=== PATIENT | male | born 1985 | race African-American/Black ===

== ENCOUNTER 2018-07-29 16:30 | Emergency (ER) | payer OTHER, MEDICAID, SELFPAY ==
[2018-07-29] VITALS (7 sets, daily range): BP systolic 127–147; BP diastolic 69–92; PULSE 69–105; RESP 16–27; TEMP 36.7; O2SAT 98–100; BMI 49.8
--- NOTE | 2018-07-29 18:09 | ED.ARRPALP ---
HPI - Arrhythmia/Palpitations General Chief Complaint: Arrhythmia/Palpitations Stated Complaint: feeling like passing out,states heart palpitaitons Time Seen by Provider: 07/29/18 18:08 Source: patient Mode of arrival: ambulatory Limitations: no limitations History of Present Illness HPI narrative: Patient states he has a history of palpitations for the last couple of years; however, he states that for the past week and half, he has also noticed that he has felt dizzy when he stands up or sits. Patient states he keeps getting head rushes. Patient denies fevers, chills, vomiting, diarrhea, dysuria, shortness of breath, chest pain, or lower extremity edema. He states he is otherwise healthy. He has been sleeping about as much as he usually does, and drinks about 64 oz combined of water and Gatorade. He states he does not drink caffeine or alcohol. Patient is not on any medications and has not been on any new as needed or [id number] medications lately. Patient states his stress level is about the same as usual. He does state his palpitations got worse after he started working out and quit using caffeine. Patient has previously been worked up with Cardiology For his palpitations, including echocardiogram and Holter monitoring, both of which were unremarkable. Patient states he does not have a primary care physician. MD complaint: palpitations ( dizziness) Onset (ago): week(s) ( 1 and half weeks) Duration: intermittent Severity: moderate Context: occurred during rest Arrhythmia history: other ( patient has been diagnosed with PVCs previously.) Associated symptoms: near-syncope ( Patient states he has not felt as though he would lose consciousness, but just feels Somewhat lightheaded. ) Treatments prior to arrival: other ( none) Related Data Previous Rx's Medication Instructions Recorded albuterol sulfate [Ventolin HFA] 0 INH Q4H #8 gm 10/31/16 Allergies Allergy/AdvReac Type Severity Reaction Status Date / Time No Known Drug Allergies Allergy Verified 07/29/18 16:38 Review of Systems Review of Systems All systems reviewed & are unremarkable except as noted in HPI and below Constitutional Denies chills, Denies difficulty sleeping, Denies fever(s), Denies lethargy, Denies night sweats and Denies weakness Eyes Denies change in vision, Denies eye discharge, Denies irritation and Denies loss of vision ENT Ears, Nose, Mouth, and Throat: Denies change in voice, Denies neck pain and Denies sore throat Cardiovascular Denies chest pain, Denies irregular heart rhythm, Reports lightheadedness, Reports palpitations ( chronic), Denies dyspnea, Denies dyspnea on exertion and Denies orthopnea Respiratory Denies cough, Denies dyspnea, Denies dyspnea on exertion and Denies wheezing Gastrointestinal Gastrointestinal: Denies abdominal pain, Denies change in bowel habits, Denies diarrhea, Denies nausea and Denies vomiting Genitourinary Denies hematuria, Denies flank pain, Denies urinary incontinence and Denies urinary urgency Musculoskeletal Denies neck pain Integumentary/Breasts Denies pruritus, Denies erythema, Denies rash and Denies wounds Neurologic Denies confusion, Denies loss of vision and Denies weakness Psychiatric Denies anxiety, Denies confusion, Denies depression, Denies homicidal ideation and Denies suicidal ideation Endocrine Reports palpitations ( chronic) Hematologic/Lymphatic Denies easy bruising Allergic/Immunologic Denies wheezing PFSH Medical History PVC (premature ventricular contraction) (Acute) Palpitations (Acute) Thoracic back pain (Acute) Surgical History No pertinent past surgical history (Acute) Family History Brother Hypertension Diabetes mellitus, type II Father Age: 68 [place] (myocardial infarction), Onset Age: 40 Diabetes mellitus Hypertension Grandmother Emphysema Mother Obesity Anxiety and depression Social History Smoking Status: Current every day smoker Exam Initial Vital Signs Initial Vital Signs: Vital Signs Temperature 98.0 F 07/29/18 16:38 Pulse Rate 76 07/29/18 16:38 Respiratory Rate 18 07/29/18 16:38 Blood Pressure 147/92 H 07/29/18 16:38 Pulse Oximetry 100 07/29/18 16:38 Const General: cooperative and well developed Nutritional Appearance: obese ( moderate) Orientation: alert, awake, oriented x3 and not confused [facility] Head: normocephalic and atraumatic Ears: external ears normal Nose: external nose normal and No nasal discharge Mouth: oral mucosae normal and moist mucous membranes Eyes General: appearance normal, both eyes and all related structures Eyelids: eyelids normal Conjunctivae: conjunctivae normal Sclera: sclerae normal Pupils: PERRL EOM: EOM intact bilaterally Neck Neck: normal visual inspection, trachea midline, No lymphadenopathy, No midline deformity and No JVD Lymphatic: No lymphedema Chest Chest: normal inspection of the chest Resp Effort & Inspection: normal respiratory effort, able to speak in complete sentences, no respiratory distress and no use of accessory muscles Auscultation: clear to auscultation bilaterally, no rales, no rhonchi and no wheezes Cardio Rate: regular rate Rhythm: regular rhythm Heart Sounds: no click, no gallops, no murmurs and no rubs Pulses: normal peripheral pulses GI Inspection: non-distended Palpation: soft, no hepatosplenomegaly, No guarding, No pulsatile mass and No tender Auscultation: normal bowel sounds Back/Spine/Pelvis Back: No CVA tenderness Cervical Spine: cervical ROM normal and No pain with cervical ROM Thoracic/Lumbar Spine: thoracic and lumbar spine normal to inspection Skin General: no rashes or lesions noted, No jaundice and No petechiae Neuro General: alert, oriented x3, gait normal and no focal motor deficits Speech: speech normal Extrem General: full ROM, no clubbing, cyanosis or edema, no pedal edema and no calf tenderness Psych Appearance: well kempt Mental Status: mental status grossly normal Attitude: cooperative Thought Content: normal and suicidality Judgment: judgment good Course Hospital Course: Patient was given 1 L bolus 0.9 normal saline and was worked up with laboratory studies. We did discuss potential causes of the patient's symptoms, though I did emphasize to the patient that he is relatively low risk, given his age and lack of comorbidities. Orders Ordered: Discontinued Medications Sodium Chloride (Normal Saline 0.9%) 1,000 mls @ 1,000 mls/hr IV BOLUS ONE Stop: 07/29/18 19:29 Last Admin: 07/29/18 19:09 Dose: 1,000 mls/hr Vital Signs - 8 hr 07/29/18 16:38 Temperature 98.0 F Pulse Rate 76 Respiratory Rate 18 Blood Pressure 147/92 H Pulse Oximetry 100 MDM - Arrhythmia/Palpitations Medical Records Attestation: I reviewed the patient's medical records. Lab Data Result diagrams: 07/29/18 18:50 07/29/18 20:25 Lab Results 07/29/18 07/29/18 07/29/18 Range/Units 18:50 18:50 18:50 WBC 12.5 H (4.5-11.0) X10^3/uL RBC 5.30 (4.5-5.9) X10^6/uL Hgb 16.3 (13.5-17.5) g/dL Hct 48.4 (41-53) % MCV 91.4 (80-100) fL MCH 30.7 (26-34) PG MCHC 33.6 (30-36) % RDW 13.8 (11.6-14.8) % Plt Count 314 (150-400) X10^3/uL Neut % (Auto) 72.2 (50-75) % Lymph % (Auto) 23.1 L (25-40) % [place] % (Auto) 3.9 (3-14) % Eos % (Auto) 0.5 L (2-4) % Baso % (Auto) 0.3 (0-2) % Neut # (Auto) 9000 H (6253-1664) /uL Sodium 140 (137-145) mmol/L Potassium TNP Chloride 106 (98-107) mmol/L Carbon Dioxide 26 (22-32) mmol/L BUN 11 (9-20) mg/dL Creatinine 0.70 (0.66-1.25) mg/dL Estimated GFR > 60.0 (>60) mL/min BUN/Creatinine Ratio 15.7 (6-22) Glucose 85 (70-100) mg/dL Calcium 9.3 (8.4-10.2) mg/dL Total Bilirubin 1.2 (0.2-1.3) mg/dL AST 39 (17-59) IU/L ALT 22 (21-72) IU/L Alkaline Phosphatase 54 (38-126) U/L Total Protein 8.4 H (6.3-8.2) g/dL Albumin 4.6 (3.5-5.0) g/dL Globulin 3.8 (1.7-4.1) g/dL Albumin/Globulin Ratio 1.2 (1.0-2.8) TSH 0.91 (0.47-4.68) uIU/mL Free T4 1.21 (0.78-2.19) ng/dL 07/29/18 Range/Units 20:25 WBC (4.5-11.0) X10^3/uL RBC (4.5-5.9) X10^6/uL Hgb (13.5-17.5) g/dL Hct (41-53) % MCV (80-100) fL MCH (26-34) PG MCHC (30-36) % RDW (11.6-14.8) % Plt Count (150-400) X10^3/uL Neut % (Auto) (50-75) % Lymph % (Auto) (25-40) % [place] % (Auto) (3-14) % Eos % (Auto) (2-4) % Baso % (Auto) (0-2) % Neut # (Auto) (1042-9815) /uL Sodium (137-145) mmol/L Potassium 4.4 Chloride (98-107) mmol/L Carbon Dioxide (22-32) mmol/L BUN (9-20) mg/dL Creatinine (0.66-1.25) mg/dL Estimated GFR (>60) mL/min BUN/Creatinine Ratio (6-22) Glucose (70-100) mg/dL Calcium (8.4-10.2) mg/dL Total Bilirubin (0.2-1.3) mg/dL AST (17-59) IU/L ALT (21-72) IU/L Alkaline Phosphatase (38-126) U/L Total Protein (6.3-8.2) g/dL Albumin (3.5-5.0) g/dL Globulin (1.7-4.1) g/dL Albumin/Globulin Ratio (1.0-2.8) TSH (0.47-4.68) uIU/mL Free T4 (0.78-2.19) ng/dL ECG Data Attestation: I personally reviewed and interpreted this ECG as follows: (See below) Interpretation: Twelve lead EKG performed on July 29, 2018 at 4:39 p.m.. Regular ventricular rhythm with a rate of 76 beats per minute [place] interval 183 milliseconds QRS duration 85 millisecond QTC interval 391 milliseconds Normal axis Interpretation: Normal sinus rhythm; normal EKG Interpretation by ED MD MDM Narrative Medical decision making narrative: This patient was low risk for cardiac etiology of his symptoms. Additionally, his workup was negative. I did feel he was stable for discharge home. We have discussed home management of his symptoms, as well as the usual indications for return. Discharge Plan Departure Patient Disposition: Home Clinical Impression: Lightheadedness Discharge Date/Time: 07/29/18 21:44 Interventions: ED Discharge Assessment Last Done: 07/29/18 21:44 Instructions: DI for Dizziness-Nonvertigo Activity Restrictions/Additional Instructions: Your labs look good. If you continue to have these episodes, the best plan is to follow up with your primary care physician for further evaluation. Prescriptions: No Action albuterol sulfate [Ventolin HFA] 90 MCG/PUFF HFA aerosol inhaler INH Q4H Qty: 8 RF: 0 Referrals: Madison Baxter ARNP [Primary Care Provider] - ( Please call 1st thing tomorrow morning to schedule a follow-up visit for next week.)
[2018-07-29] MEDS: SODIUM CHLORIDE 0.9% 1,000 ML 1000 ML IV (19:09)
[2018-07-29 19:14] LABS: Add Manual Diff / Slide Review NO; Basophils Percent Auto 0.3 % (0-2); Eosinophils Percent Auto 0.5 % (2-4); Hematocrit 48.4 % (41-53); Hemoglobin 16.3 g/dL (13.5-17.5); Lymphocytes Percent Auto 23.1 % (25-40); Mean Corpuscular HGB Conc 33.6 % (30-36); Mean Corpuscular Hemoglobin 30.7 PG (26-34); Mean Corpuscular Volume 91.4 fL (80-100); Monocytes Percent Auto 3.9 % (3-14); Neutrophils Absolute Auto 9000 /uL (3000-5900); Neutrophils Percent Auto 72.2 % (50-75); Platelet Count 314 X10^3/uL (150-400); Red Cell Distribution Width 13.8 % (11.6-14.8); White Blood Cell Count 12.5 X10^3/uL (4.5-11.0)
[2018-07-29 19:40] LABS: Alanine Aminotransferase 22 IU/L (21-72); Albumin 4.6 g/dL (3.5-5.0); Albumin Globulin Ratio 1.2 (1.0-2.8); Alkaline Phosphatase 54 U/L (38-126); Aspartate Aminotransferase 39 IU/L (17-59); BUN Creatinine Ratio 15.7 (6-22); Bilirubin Total 1.2 mg/dL (0.2-1.3); Blood Urea Nitrogen 11 mg/dL (9-20); Calcium 9.3 mg/dL (8.4-10.2); Carbon Dioxide 26 mmol/L (22-32); Chloride 106 mmol/L (98-107); Estimated Glomerular Filt Rate > 60.0 mL/min (>60); Globulin 3.8 g/dL (1.7-4.1); Glucose 85 mg/dL (70-100); Sodium 140 mmol/L (137-145)
[2018-07-29 19:42] LABS: HEMOLYSIS 217 (0-50); Total Protein 8.4 g/dL (6.3-8.2)
[2018-07-29 19:50] LABS: Free T4, Direct Thyroxine 1.21 ng/dL (0.78-2.19)
[2018-07-29 20:04] LABS: Thyroid Stimulating Hormone 0.91 uIU/mL (0.47-4.68)
[2018-07-29 20:39] LABS: HEMOLYSIS < 15 (0-50); Potassium 4.4 mmol/L (3.4-5.1)
== END 2018-07-29 21:44 | disposition home or self-care (01) ==
PROVIDERS: Emergency Provider Emergency Medicine; Family Provider Nurse Practitioner; PCP Nurse Practitioner
DX: R42 Dizziness and giddiness (principal)
CPT/HCPCS: 36415; 36591; 80053; 84132; 84439; 84443; 85025; 93005; 93010; 96360; 99283; 99284

== ENCOUNTER 2019-11-16 22:58 | Emergency (ER) | payer OTHER, MEDICAID, SELFPAY ==
[2019-11-16 23:05] VITALS: BP 139/79; PULSE 102; RESP 14; TEMP 36.8; O2SAT 99; BMI 47.9
--- NOTE | 2019-11-16 23:09 | DI.RAD.S_ITS ---
PROCEDURE: XR CHEST 1V INDICATIONS: chest pain TECHNIQUE: One view of the chest was acquired. COMPARISON: [facility], CR, XR CHEST 1VW, 02/04/2017, 23:04. [facility], CR, XR CHEST 1VW (PORTABLE), 05/22/2017, 16:49. [facility], CR, CHEST 2 VIEW, 11/18/2016, 20:06. FINDINGS: Surgical changes and devices: None. Lungs and pleura: Lungs are clear. No pleural effusions or pneumothorax. Mediastinum: Mediastinal contours appear normal. Heart size is normal. Bones and chest wall: No suspicious bony lesions. Overlying soft tissues appear unremarkable. IMPRESSION: No acute cardiopulmonary disease. Dictated by: Saundra Mendoza M.D. on 11/17/2019 at 9:22 Approved by: Saundra Mendoza M.D. on 11/17/2019 at 9:22
[2019-11-16 23:19] LABS: Add Manual Diff / Slide Review NO; Basophils Absolute Auto 100 /uL (0-100); Basophils Percent Auto 0.4 % (0-2); Eosinophils Absolute Auto 200 /uL (0-450); Eosinophils Percent Auto 1.2 % (2-4); Hematocrit 47.6 % (41-53); Hemoglobin 16.3 g/dL (13.5-17.5); Lymphocytes Absolute Auto 7300 /uL (1100-4500); Lymphocytes Percent Auto 50.2 % (25-40); Mean Corpuscular HGB Conc 34.3 % (30-36); Mean Corpuscular Volume 90.4 fL (80-100); Monocytes Absolute Auto 1100 /uL (0-900); Monocytes Percent Auto 7.6 % (3-14); Neutrophils Absolute Auto 5900 /uL (1500-7000); Neutrophils Percent Auto 40.6 % (50-75); Platelet Count 324 X10^3/uL (150-400); Prothrombin Time 11.6 SECONDS (10.1-12.7); Red Blood Cell Count 5.27 X10^6/uL (4.5-5.9); Red Cell Distribution Width 13.4 % (11.6-14.8); White Blood Cell Count 14.6 X10^3/uL (4.5-11.0)
[2019-11-16 23:22] LABS: PTT Partial Thromboplastin Tim 32 SECONDS (26.4-36.2)
[2019-11-16 23:24] LABS: Alanine Aminotransferase 39 IU/L (<50); Albumin 4.6 g/dL (3.5-5.0); Albumin Globulin Ratio 1.4 (1.0-2.8); Alkaline Phosphatase 74 U/L (38-126); Aspartate Aminotransferase 31 IU/L (17-59); Bilirubin Total 0.4 mg/dL (0.2-1.3); Blood Urea Nitrogen 16 mg/dL (9-20); Calcium 9.4 mg/dL (8.4-10.2); Carbon Dioxide 25 mmol/L (22-32); Chloride 105 mmol/L (98-107); Creatine Kinase 133 U/L (55-170); Estimated Glomerular Filt Rate > 60.0 mL/min (>60); Globulin 3.4 g/dL (1.7-4.1); Glucose 90 mg/dL (70-100); HEMOLYSIS 39 (0-50); Lipase 74 U/L (23-300); Potassium 3.8 mmol/L (3.4-5.1); Sodium 139 mmol/L (137-145)
--- NOTE | 2019-11-16 23:26 | ED_ITS ---
HPI - Arrhythmia/Palpitations General Chief Complaint: Arrhythmia/Palpitations Stated Complaint: PALPITATIONS Time Seen by Provider: 11/16/19 23:04 Source: family Mode of arrival: Ambulatory Limitations: no limitations History of Present Illness HPI narrative: Patient is a 33-year-old male here for evaluation of pal pitations. He states that throughout today he is noticed that his heart is beating irregularly. He states that it feels like a very hard beat. Does not feel like his heart is beating fast. No chest pain or shortness of breath or lightheadedness associated with. He has had these in the past however they have never been this consistent. He is fairly anxious about the symptoms. Has not tried anything for symptoms prior to arrival Related Data Previous Rx's Medication Instructions Recorded albuterol sulfate [Ventolin HFA] 0 INH Q4H #8 gm 10/31/16 Allergies Allergy/AdvReac Type Severity Reaction Status Date / Time No Known Drug Allergies Allergy Verified 07/29/18 16:38 Review of Systems Constitutional Constitutional: Denies fever(s) and Denies headache(s) ENT Ears, Nose, Mouth, and Throat: Denies headache(s) Cardiovascular Cardiovascular: Denies chest pain, Denies syncope, Denies rapid heart rate, Reports palpitations and Denies dyspnea Respiratory Respiratory: Denies cough and Denies dyspnea Gastrointestinal Gastrointestinal: Denies abdominal pain Musculoskeletal Musculoskeletal: Denies myalgias and Denies arthralgias Integumentary/Breasts Skin/Breast: Denies lesions and Denies rash Neurologic Neurologic: Denies behavioral changes, Denies syncope and Denies headache(s) Psychiatric Psychiatric: Reports anxiety and Denies behavioral changes Endocrine Endocrine: Reports palpitations Hematologic/Lymphatic Hematologic/Lymphatic: Denies easy bleeding and Denies easy bruising Patient History Medical History Palpitations (Acute) PVC (premature ventricular contraction) (Acute) Thoracic back pain (Acute) Surgical History (Updated 07/29/18 @ 18:10 by Maggy Nunez MD) No pertinent past surgical history (Acute) Family History (Updated 06/25/14 @ 00:00 by PIA Walters) Brother Hypertension Diabetes mellitus, type II Father Age: 69 [place] (myocardial infarction) Diabetes mellitus Hypertension Grandmother Emphysema Mother Obesity Anxiety and depression Social History Smoking Status: Current every day smoker Smoking Status: Current every day smoker alcohol intake frequency: 0-2 drinks per day Substance Use Type: does not use Exam Initial Vital Signs Initial Vital Signs: Vital Signs Temperature 98.2 F 11/16/19 23:05 Pulse Rate 102 H 11/16/19 23:05 Respiratory Rate 14 11/16/19 23:05 Blood Pressure 139/79 11/16/19 23:05 Pulse Oximetry 99 11/16/19 23:05 Const General: cooperative and comfortable Orientation: alert, awake and oriented x3 HENMT Head: normal to inspection and normocephalic Chest Chest: No crepitus and No tenderness Resp Effort & Inspection: normal respiratory effort Auscultation: clear to auscultation bilaterally Cardio Rate: regular rate Rhythm: regular rhythm Pulses: radial pulses present GI Inspection: non-distended Palpation: soft Skin Lesions: no lesions Rashes: no rashes Neuro General: alert, awake and oriented x3 Cognition: normal cognition Speech: speech normal Motor: muscle tone normal throughout Sensory Exam: no sensory deficits noted Extrem General: normal to inspection, capillary refill normal and No edema Psych Appearance: grossly normal and well kempt Course Orders Ordered: ED Orders 11/16/19 23:05 EKG-12 Lead Stat 11/16/19 23:07 Complete Blood Count AUTO DIFF Stat Comprehensive Metabolic Panel Stat Lipase Stat Partial Thromboplastin Time Stat Prothrombin Time INR Stat Troponin & CK Cardiac Panel Stat 11/16/19 23:09 XR chest 1V Stat Vital Signs Vital signs: Vital Signs - 8 hr 11/16/19 23:05 11/17/19 00:02 Temperature 98.2 F Pulse Rate 102 H 81 Respiratory Rate 14 15 Blood Pressure 139/79 Blood Pressure [Left Arm] 141/74 H Pulse Oximetry 99 100 MDM - Arrhythmia/Palpitations Medical Records Attestation: I reviewed the patient's medical records. Lab Data Attestation: I reviewed the patient's lab results. Result diagrams: 11/16/19 23:07 11/16/19 23:07 Labs: Lab Results 11/16/19 11/16/19 11/16/19 Range/Units 23:07 23:07 23:07 WBC 14.6 H (4.5-11.0) X10^3/uL RBC 5.27 (4.5-5.9) X10^6/uL Hgb 16.3 (13.5-17.5) g/dL Hct 47.6 (41-53) % MCV 90.4 (80-100) fL MCH 31.0 (26-34) PG MCHC 34.3 (30-36) % RDW 13.4 (11.6-14.8) % Plt Count 324 (150-400) X10^3/uL Neut % (Auto) 40.6 L (50-75) % Lymph % (Auto) 50.2 H (25-40) % [place] % (Auto) 7.6 (3-14) % Eos % (Auto) 1.2 L (2-4) % Baso % (Auto) 0.4 (0-2) % Neut # (Auto) 5900 (7632-3830) /uL Lymph # (Auto) 7300 H (8666-3263) /uL [place] # (Auto) 1100 H (0-900) /uL Eos # (Auto) 200 (0-450) /uL Baso # (Auto) 100 (0-100) /uL PT 11.6 (10.1-12.7) SECONDS INR 1.0 (0.9-1.3) APTT 32 (26.4-36.2) SECONDS Sodium 139 (137-145) mmol/L Potassium 3.8 (3.4-5.1) mmol/L Chloride 105 (98-107) mmol/L Carbon Dioxide 25 (22-32) mmol/L BUN 16 (9-20) mg/dL Creatinine 0.80 (0.66-1.25) mg/dL Estimated GFR > 60.0 (>60) mL/min BUN/Creatinine Ratio 20.0 (6-22) Glucose 90 (70-100) mg/dL Calcium 9.4 (8.4-10.2) mg/dL Total Bilirubin 0.4 (0.2-1.3) mg/dL AST 31 (17-59) IU/L ALT 39 (<50) IU/L Alkaline Phosphatase 74 (38-126) U/L Total Creatine Kinase 133 (55-170) U/L CK-MB (CK-2) 0.73 (<2.37) ng/mL CK-MB (CK-2) Rel Index 0.5 L (1.5-5.0) % Troponin I < 0.012 (0.01-0.034) ng/mL Total Protein 8.0 (6.3-8.2) g/dL Albumin 4.6 (3.5-5.0) g/dL Globulin 3.4 (1.7-4.1) g/dL Albumin/Globulin Ratio 1.4 (1.0-2.8) Lipase 74 (23-300) U/L Imaging Data Chest x-ray: Attestation: I personally reviewed and interpreted this imaging study as follows: My Impression: Normal size heart No pneumonia, no pneumothorax ECG Data Attestation: I personally reviewed and interpreted this ECG as follows: Prior ECG tracings: not available for review Interpretation: Sinus rhythm Ventricular rate of 92 Normal axis Normal QRS Normal QTC No ST T wave changes MDM Narrative Medical decision making narrative: Patient is in sinus rhythm upon arrival. His EKG is unremarkable. Electrolytes unremarkable. Patient did have 1 episode of symptoms while being here and on the monitor. This corresponded to 1 PVC that was seen. I did discuss this with him. We had a long discussion regarding PVCs and what they are. We did discuss return precautions and follow-up instructions. It sounds like he has been on metoprolol in the past for his symptoms however he stopped taking it because he read about the side effects and did not want to take it anymore. Patient does have a leukocytosis today. I do not have a specific source of infection. Other the palpitations he has no other complaints. Chest x-ray shows no signs of pneumonia. We will hold on further workup for this. We will hold on any antibiotics. I do not feel this is related to his palpitations. Patient was given return precautions and follow-up instructions. He expressed understanding and agreement with plan. Discharge Plan Departure Patient Disposition: Home Clinical Impression: PVC (premature ventricular contraction), Palpitations Discharge Date/Time: 11/17/19 00:23 Instructions: Premature Ventricular Beats Activity Restrictions/Additional Instructions: Recommend you contact your primary provider for a follow-up. Return to the emergency department for any new or worsening symptoms Prescriptions: No Action albuterol sulfate [Ventolin HFA] 90 MCG/PUFF HFA aerosol inhaler 0 INH Q4H Qty: 8 RF: 0
[2019-11-16 23:35] LABS: Troponin I < 0.012 ng/mL (0.01-0.034)
[2019-11-16 23:39] LABS: CKMB % Relative Index 0.5 % (1.5-5.0); Creatine Kinase MB 0.73 ng/mL (<2.37)
[2019-11-17 00:02] VITALS: BP 141/74; PULSE 81; RESP 15; O2SAT 100
== END 2019-11-17 00:23 | disposition home or self-care (01) ==
PROVIDERS: Emergency Provider Emergency Medicine
DX: I49.3 Ventricular premature depolarization (principal); R00.2 Palpitations
CPT/HCPCS: 36415; 71045; 80053; 82550; 82553; 83690; 84484; 85025; 85610; 85730; 93005; 99284; 99285

== ENCOUNTER 2020-12-12 18:51 | Emergency (ER) | payer OTHER, MEDICAID, SELFPAY ==
--- NOTE | 2020-12-12 19:01 | DI.RAD.S_ITS ---
PROCEDURE: XR CHEST 1V INDICATIONS: shortness of breath TECHNIQUE: One view of the chest was acquired. COMPARISON: [facility], CR, XR CHEST 1V, 11/16/2019, 23:14. FINDINGS: Surgical changes and devices: None. Lungs and pleura: Evaluation limited by motion. No definite consolidation or pulmonary edema. No pleural effusions or definite pneumothorax. Mediastinum: Mediastinal contours appear normal. Heart size is normal. Bones and chest wall: No suspicious bony lesions. Overlying soft tissues appear unremarkable. IMPRESSION: 1. Limited study demonstrates no definite acute cardiopulmonary disease. Dictated by: Ace Ramirez M.D. on 12/12/2020 at 19:46 Approved by: Ace Ramirez M.D. on 12/12/2020 at 19:48
[2020-12-12 19:02] VITALS: BP 180/104; PULSE 105; RESP 18; TEMP 36.6; O2SAT 99; BMI 59.3
--- NOTE | 2020-12-12 19:11 | ED.SOB ---
HPI - SOB/Dyspnea General Chief Complaint: Shortness of Breath/Dyspnea Stated Complaint: HARD TO BREATH CHEST HURT Time Seen by Provider: 12/12/20 19:07 Source: patient Mode of arrival: Ambulatory Limitations: no limitations History of Present Illness HPI Narrative: The patient complains of mild dyspnea, onset earlier today. He has slight sternal discomfort, he feels from breathing heavy. He has rhinorrhea and mild cough. He has no change in taste or smell. He has a mild sore throat. He denies headache or fever. He does vape. He does not otherwise use tobacco. He has no history of allergies or asthma. He has no history of cardiac or respiratory disease. He has no personal exposure to COVID-19, but intermediate acquaintance has recently been exposed. His friend is not ill. He denies chronic medical problems. He is on no chronic medications. Related Data Previous Rx's Medication Instructions Recorded albuterol sulfate [Ventolin HFA] 0 INH Q4H #8 gm 10/31/16 Allergies Allergy/AdvReac Type Severity Reaction Status Date / Time No Known Drug Allergies Allergy Verified 12/12/20 19:07 Review of Systems Review of Systems ROS Unobtainable: All systems reviewed & are unremarkable except as noted in HPI and below Constitutional Constitutional: Reports as per HPI and Denies frequent falls Eyes Comments: Occasional clear eye discharge. No visual changes. ENT Ears, Nose, Mouth, and Throat: Denies dizziness and Denies sore throat Cardiovascular Cardiovascular: Denies chest pain, Denies irregular heart rhythm, Denies lightheadedness, Denies palpitations, Reports dyspnea and Denies dyspnea on exertion Respiratory Respiratory: Reports cough, Denies pain with cough, Reports dyspnea, Denies dyspnea on exertion and Denies wheezing Gastrointestinal Gastrointestinal: Denies abdominal pain, Denies diarrhea, Denies nausea and Denies vomiting Comments: Normal appetite. Genitourinary Comments: No dysuria. Musculoskeletal Musculoskeletal: Denies arthralgias, Denies back pain, Denies myalgias and Denies numbness Integumentary/Breasts Skin/Breast: Denies erythema, Denies rash and Denies wounds Neurologic Neurologic: Denies confusion, Denies dizziness, Denies frequent falls and Denies numbness Psychiatric Psychiatric: Denies anxiety and Denies confusion Endocrine Endocrine: Denies palpitations Allergic/Immunologic Allergic/Immunologic: Denies wheezing Patient History Medical History Morbid obesity Palpitations PVC (premature ventricular contraction) Thoracic back pain Surgical History No pertinent past surgical history Family History Brother Hypertension Diabetes mellitus, type II Father Age: 70 [place] (myocardial infarction) Diabetes mellitus Hypertension Grandmother Emphysema Mother Obesity Anxiety and depression Social History Smoking Status: Former smoker Smoking Status: Former smoker tobacco type: vaping alcohol intake frequency: other Substance Use Type: does not use Exam Initial Vital Signs Initial Vital Signs: Vital Signs Temperature 98 F 12/12/20 19:02 Pulse Rate 105 H 12/12/20 19:02 Respiratory Rate 18 12/12/20 19:02 Blood Pressure 180/104 H 12/12/20 19:02 Pulse Oximetry 99 12/12/20 19:02 Const General: cooperative and well developed Nutritional Appearance: well nourished [facility] Head: normocephalic and atraumatic Ears: TM's normal bilaterally Face and sinus: normal facial exam and sinuses tender Mouth: oral mucosae normal Throat: posterior oropharynx normal Eyes General: appearance normal, both eyes and all related structures Eyelids: eyelids normal Conjunctivae: conjunctivae normal Sclera: sclerae normal Pupils: PERRL EOM: EOM intact bilaterally Neck Neck: No JVD Resp Effort & Inspection: normal respiratory effort and able to speak in complete sentences Auscultation: clear to auscultation bilaterally, no rales, no rhonchi and no wheezes Cardio Rate: regular rate Rhythm: regular rhythm Heart Sounds: S1 normal, S2 normal, no click, no gallops, no murmurs and no rubs Pulses: normal peripheral pulses GI Inspection: obesity Palpation: soft, no hepatosplenomegaly, No guarding, No pulsatile mass and No tender Auscultation: normal bowel sounds Back/Spine/Pelvis Back: No CVA tenderness Cervical Spine: cervical ROM normal Thoracic/Lumbar Spine: thoracic and lumbar spine normal to inspection Skin General: no rashes or lesions noted, No jaundice and No petechiae Neuro General: patient alert, patient oriented x3, gait normal and no focal motor deficits Speech: speech normal Extrem General: no pedal edema and no calf tenderness Course Orders Ordered: ED Orders 12/12/20 19:00 COVID19 Stat EKG-12 Lead Stat 12/12/20 19:01 XR chest 1V Stat 12/12/20 19:36 Complete Blood Count AUTO DIFF Stat Comprehensive Metabolic Panel Stat Lipase Stat NT-proBNP (BNP-Adult 18+) Stat Partial Thromboplastin Time Stat Prothrombin Time INR Stat Troponin & CK Cardiac Panel Stat Discontinued Medications Aspirin (Aspirin 81 Mg Chew Tab) 324 mg PO NOW ONE Stop: 12/12/20 19:02 Last Admin: 12/12/20 19:52 Dose: 324 mg Documented by: MAXINE Vital Signs Vital signs: Vital Signs - 8 hr 12/12/20 19:02 Temperature 98 F Pulse Rate 105 H Respiratory Rate 18 Blood Pressure 180/104 H Pulse Oximetry 99 MDM - SOB/Dyspnea Lab Data Result diagrams: 12/12/20 19:36 12/12/20 19:36 Labs: Lab Results 12/12/20 12/12/20 12/12/20 Range/Units 19:00 19:36 19:36 WBC 12.9 H (4.5-11.0) X10^3/uL RBC 5.35 (4.5-5.9) X10^6/uL Hgb 16.2 (13.5-17.5) g/dL Hct 48.6 (41-53) % MCV 90.7 (80-100) fL MCH 30.3 (26-34) PG MCHC 33.4 (30-36) % RDW 13.6 (11.6-14.8) % Plt Count 337 (150-400) X10^3/uL Neut % (Auto) 56.0 (50-75) % Lymph % (Auto) 31.1 (25-40) % [place] % (Auto) 7.8 (3-14) % Eos % (Auto) 4.7 H (2-4) % Baso % (Auto) 0.4 (0-2) % Neut # (Auto) 7200 H (6280-7890) /uL Lymph # (Auto) 4000 (8492-0544) /uL [place] # (Auto) 1000 H (0-900) /uL Eos # (Auto) 600 H (0-450) /uL Baso # (Auto) 0 (0-100) /uL PT 11.7 (10.1-12.7) SECONDS INR 1.0 (0.9-1.3) APTT 34 (26.4-36.2) SECONDS Sodium (137-145) mmol/L Potassium (3.4-5.1) mmol/L Chloride (98-107) mmol/L Carbon Dioxide (22-32) mmol/L BUN (9-20) mg/dL Creatinine (0.66-1.25) mg/dL Estimated GFR (>60) mL/min BUN/Creatinine Ratio (6-22) Glucose (70-100) mg/dL Calcium (8.4-10.2) mg/dL Total Bilirubin (0.2-1.3) mg/dL AST (17-59) IU/L ALT (<50) IU/L Alkaline Phosphatase (38-126) U/L Total Creatine Kinase (55-170) U/L CK-MB (CK-2) (<2.37) ng/mL CK-MB (CK-2) Rel Index (1.5-5.0) % Troponin I (0.01-0.034) ng/mL NT-Pro-B Natriuret Pep (<125) pg/mL Total Protein (6.3-8.2) g/dL Albumin (3.5-5.0) g/dL Globulin (1.7-4.1) g/dL Albumin/Globulin Ratio (1.0-2.8) Lipase (23-300) U/L SARS-CoV-2 (PCR) Negative (Negative) 12/12/20 Range/Units 19:36 WBC (4.5-11.0) X10^3/uL RBC (4.5-5.9) X10^6/uL Hgb (13.5-17.5) g/dL Hct (41-53) % MCV (80-100) fL MCH (26-34) PG MCHC (30-36) % RDW (11.6-14.8) % Plt Count (150-400) X10^3/uL Neut % (Auto) (50-75) % Lymph % (Auto) (25-40) % [place] % (Auto) (3-14) % Eos % (Auto) (2-4) % Baso % (Auto) (0-2) % Neut # (Auto) (1903-3944) /uL Lymph # (Auto) (3830-0860) /uL [place] # (Auto) (0-900) /uL Eos # (Auto) (0-450) /uL Baso # (Auto) (0-100) /uL PT (10.1-12.7) SECONDS INR (0.9-1.3) APTT (26.4-36.2) SECONDS Sodium 137 (137-145) mmol/L Potassium 4.2 (3.4-5.1) mmol/L Chloride 105 (98-107) mmol/L Carbon Dioxide 25 (22-32) mmol/L BUN 9 (9-20) mg/dL Creatinine 0.71 (0.66-1.25) mg/dL Estimated GFR > 60.0 (>60) mL/min BUN/Creatinine Ratio 12.7 (6-22) Glucose 104 H (70-100) mg/dL Calcium 9.5 (8.4-10.2) mg/dL Total Bilirubin 0.3 (0.2-1.3) mg/dL AST 26 (17-59) IU/L ALT 41 (<50) IU/L Alkaline Phosphatase 85 (38-126) U/L Total Creatine Kinase 218 H (55-170) U/L CK-MB (CK-2) 1.89 (<2.37) ng/mL CK-MB (CK-2) Rel Index 0.9 L (1.5-5.0) % Troponin I < 0.012 (0.01-0.034) ng/mL NT-Pro-B Natriuret Pep 30 (<125) pg/mL Total Protein 8.0 (6.3-8.2) g/dL Albumin 4.4 (3.5-5.0) g/dL Globulin 3.6 (1.7-4.1) g/dL Albumin/Globulin Ratio 1.2 (1.0-2.8) Lipase 46 (23-300) U/L SARS-CoV-2 (PCR) (Negative) Imaging Data Chest x-ray: Radiologist's Impression: No acute findings ECG Data Attestation: I personally reviewed and interpreted this ECG as follows: (Sinus tachycardia rate 104 beats per minute. Normal intervals. No ectopy. No acute ST T wave changes.) MDM Narrative Medical decision making narrative: The patient noted during the interview decided just a head cold. His evaluation is mostly for his elevated blood pressure. [place] exam would be consistent with a head cold, he is COVID negative. He does not have a local doctor, he is asked to find a local PCM, and have his BP rechecked. There is no apparent significant family history of hypertension. Discharge Plan Departure Patient Disposition: Home Clinical Impression: Upper respiratory infection, viral, Elevated blood pressure reading Instructions: Essential Hypertension, DI for Viral Upper Respiratory Infection -- Adult Activity Restrictions/Additional Instructions: Rest, drink plenty of fluids. Advil 3 tablets every 6 hours as needed for general body aches. Mucinex is a available [id number]. Take 1 every 6 hours as needed for sinus congestion or cough. Return to the ER if symptoms escalate. Establish care with local PCM. You should have your blood pressure rechecked, you are elevated tonight. Prescriptions: No Action albuterol sulfate [Ventolin HFA] 90 MCG/PUFF HFA aerosol inhaler 0 INH Q4H Qty: 8 RF: 0
[2020-12-12 19:16] LABS: COVID19 -Nasal RAPID Negative (Negative)
[2020-12-12 19:42] LABS: Add Manual Diff / Slide Review NO; Basophils Absolute Auto 0 /uL (0-100); Basophils Percent Auto 0.4 % (0-2); Eosinophils Absolute Auto 600 /uL (0-450); Eosinophils Percent Auto 4.7 % (2-4); Hematocrit 48.6 % (41-53); Hemoglobin 16.2 g/dL (13.5-17.5); Lymphocytes Absolute Auto 4000 /uL (1100-4500); Lymphocytes Percent Auto 31.1 % (25-40); Mean Corpuscular HGB Conc 33.4 % (30-36); Mean Corpuscular Hemoglobin 30.3 PG (26-34); Mean Corpuscular Volume 90.7 fL (80-100); Monocytes Absolute Auto 1000 /uL (0-900); Monocytes Percent Auto 7.8 % (3-14); Neutrophils Absolute Auto 7200 /uL (1500-7000); Platelet Count 337 X10^3/uL (150-400); Red Blood Cell Count 5.35 X10^6/uL (4.5-5.9); Red Cell Distribution Width 13.6 % (11.6-14.8); White Blood Cell Count 12.9 X10^3/uL (4.5-11.0)
[2020-12-12 19:49] LABS: Prothrombin Time 11.7 SECONDS (10.1-12.7)
[2020-12-12 19:52] LABS: PTT Partial Thromboplastin Tim 34 SECONDS (26.4-36.2)
[2020-12-12] MEDS: ASPIRIN 81 MG CHEW TAB 324 MG PO (19:52)
[2020-12-12 19:53] LABS: Alanine Aminotransferase 41 IU/L (<50); Albumin 4.4 g/dL (3.5-5.0); Albumin Globulin Ratio 1.2 (1.0-2.8); Alkaline Phosphatase 85 U/L (38-126); Aspartate Aminotransferase 26 IU/L (17-59); BUN Creatinine Ratio 12.7 (6-22); Bilirubin Total 0.3 mg/dL (0.2-1.3); Blood Urea Nitrogen 9 mg/dL (9-20); Calcium 9.5 mg/dL (8.4-10.2); Carbon Dioxide 25 mmol/L (22-32); Chloride 105 mmol/L (98-107); Creatine Kinase 218 U/L (55-170); Estimated Glomerular Filt Rate > 60.0 mL/min (>60); Globulin 3.6 g/dL (1.7-4.1); Glucose 104 mg/dL (70-100); Lipase 46 U/L (23-300); Potassium 4.2 mmol/L (3.4-5.1); Sodium 137 mmol/L (137-145)
[2020-12-12 20:05] LABS: NT-proBNP (BNP-Adult 18+) 30 pg/mL (<125); Troponin I < 0.012 ng/mL (0.01-0.034)
[2020-12-12 20:08] LABS: HEMOLYSIS 17 (0-50)
[2020-12-12 20:17] LABS: CKMB % Relative Index 0.9 % (1.5-5.0); Creatine Kinase MB 1.89 ng/mL (<2.37)
[2020-12-12 21:35] VITALS: BP 163/93; PULSE 87; RESP 12; O2SAT 99
== END 2020-12-12 21:44 | disposition home or self-care (01) ==
PROVIDERS: Emergency Provider Emergency Medicine
DX: J06.9 Acute upper respiratory infection, unspecified (principal); R00.0 Tachycardia, unspecified; R03.0 Elevated blood-pressure reading, without diagnosis of hypertension; R05 Cough; E66.01 Morbid (severe) obesity due to excess calories; Z68.43 Body mass index [BMI] 50.0-59.9, adult; I49.3 Ventricular premature depolarization; Z20.822 Contact with and (suspected) exposure to COVID-19
CPT/HCPCS: 36415; 71045; 80053; 82550; 82553; 83690; 83880; 84484; 85025; 85610; 85730; 87635; 93005; 93010; 99281; 99284; C9803

== ENCOUNTER 2021-02-17 14:08 | Emergency (ER) | payer OTHER, MEDICAID, SELFPAY | END 2021-02-17 14:45 | disposition left against medical advice (07) | PROVIDERS: Emergency Provider Emergency Medicine | DX: R42 Dizziness and giddiness (principal) ==

== ENCOUNTER → 2021-04-27 18:40 | Outpatient (CLI) | payer OTHER, MEDICAID, SELFPAY ==
[2021-04-27 19:36] LABS: COVID19 -Nasal RAPID Negative (Negative)
== END ==
PROVIDERS: Visit Provider Physician Assistant
DX: Z20.822 Contact with and (suspected) exposure to COVID-19 (principal)
CPT/HCPCS: 87635

== ENCOUNTER 2022-01-29 09:02 | Emergency (ER) | payer OTHER, MEDICAID, SELFPAY ==
[2022-01-29] VITALS (7 sets, daily range): BP systolic 141–164; BP diastolic 83–107; PULSE 76–94; RESP 11–24; TEMP 36.8; O2SAT 98–100; BMI 60.0
--- NOTE | 2022-01-29 09:32 | ED_ITS ---
HPI - Chest Pain General Chief Complaint: Chest Pain Stated Complaint: Heart palpitations, chest pain, left arm pain Time Seen by Provider: 01/29/22 09:24 Source: patient Mode of arrival: Ambulatory Limitations: no limitations History of Present Illness HPI narrative: The patient has history of palpitations. He developed significant palpitations about 2 days ago. He improved yesterday, but has severe palpitations again this morning. He has no significant chest discomfort this time. He has no dyspnea, weakness or dizziness. He denies recent illness. He has no headache, sore throat, cough or fever. He has no GI symptoms. He vapes. He does not use alcohol or drugs. He is on no prescription medications. He has no significant cardiopulmonary disease. Related Data Previous Rx's Medication Instructions Recorded albuterol sulfate 90 mcg/actuation 0 INH Q4H #8 gm 10/31/16 aerosol inhaler (Ventolin HFA) Allergies Allergy/AdvReac Type Severity Reaction Status Date / Time No Known Drug Allergies Allergy Verified 01/29/22 09:29 Review of Systems Review of Systems ROS Unobtainable: All systems reviewed & are unremarkable except as noted in HPI and below Constitutional Constitutional: Denies body ache(s), Denies chills, Denies fatigue and Denies fever(s) Eyes Eyes: Denies change in vision, Denies eye discharge and Denies irritation ENT Ears, Nose, Mouth, and Throat: Denies vertigo, Denies dizziness, Denies post nasal drip, Denies sinus pressure and Denies sore throat Cardiovascular Cardiovascular: Reports as per HPI and Denies syncope Respiratory Respiratory: Denies cough and Denies wheezing Gastrointestinal Gastrointestinal: Denies abdominal pain, Denies constipation, Denies cramping, Denies nausea and Denies vomiting Genitourinary Comments: No urinary complaints. Musculoskeletal Musculoskeletal: Denies arthralgias and Denies back pain Integumentary/Breasts Skin/Breast: Denies lesions and Denies rash Neurologic Neurologic: Denies behavioral changes, Denies confusion, Denies vertigo, Denies dizziness and Denies syncope Psychiatric Psychiatric: Denies anxiety, Denies behavioral changes and Denies confusion Endocrine Endocrine: Denies fatigue Hematologic/Lymphatic On Anticoagulants: No Allergic/Immunologic Allergic/Immunologic: Denies wheezing Patient History Medical History Morbid obesity Palpitations PVC (premature ventricular contraction) Thoracic back pain Surgical History No pertinent past surgical history Family History Brother Hypertension Diabetes mellitus, type II Father Age: 71 [place] (myocardial infarction) Diabetes mellitus Hypertension Grandmother Emphysema Mother Obesity Anxiety and depression Social History Smoking Status: Former smoker Smoking Status: Former smoker tobacco type: vaping alcohol intake frequency: other Substance Use Type: does not use Exam Initial Vital Signs Initial Vital Signs: Vital Signs Pulse Rate 89 01/29/22 09:14 Respiratory Rate 11 L 01/29/22 09:14 Pulse Oximetry 100 01/29/22 09:14 Const General: cooperative, comfortable, well developed and well groomed HENMT Head: normal to inspection, normocephalic and atraumatic Mouth: oral mucosae normal Throat: posterior oropharynx normal Eyes General: appearance normal, both eyes and all related structures Neck Neck: supple and No JVD Thyroid: thyroid normal Chest Chest: normal inspection of the chest Resp Effort & Inspection: normal respiratory effort Auscultation: clear to auscultation bilaterally Cardio Rate: regular rate Rhythm: regular rhythm Heart Sounds: S1 normal, S2 normal, no click and no murmurs GI Inspection: normal to inspection Palpation: soft and No tender Auscultation: normal bowel sounds Back/Spine/Pelvis Back: normal to inspection Skin General: no rashes or lesions noted Neuro General: patient alert, patient awake, patient oriented x3 and no focal motor deficits Extrem General: normal to inspection, full ROM, no pedal edema and no calf tenderness Psych Mental Status: mental status grossly normal Course Course Course Narrative: The patient has been in normal sinus rhythm, occasional PVCs. Vital status been stable. Workup is benign. He has benign PVCs. He is advised to follow-up with his PCM if he has ongoing concerns. Orders Ordered: ED Orders 01/29/22 09:11 EKG-12 Lead Routine 01/29/22 09:20 BMP [Basic Metabolic Panel] Stat CBC Auto Diff [Complete Blood Count AUTO DIFF] Stat D Dimer Stat Magnesium Stat cardiac panel [Troponin & CK Cardiac Panel] Stat Vital Signs Vital signs: Vital Signs - 8 hr 01/29/22 09:14 01/29/22 09:29 01/29/22 09:30 Temperature 98.2 F Pulse Rate 89 94 H 82 Respiratory Rate 11 L 24 17 Blood Pressure 164/107 H Pulse Oximetry 100 100 100 01/29/22 09:31 01/29/22 10:00 01/29/22 10:30 Temperature Pulse Rate 89 76 Respiratory Rate 14 15 Blood Pressure 156/98 H 149/88 H 141/83 H Pulse Oximetry 99 98 MDM - Chest Pain Lab Data Result diagrams: 01/29/22 09:20 01/29/22 09:20 Labs: Lab Results 01/29/22 01/29/22 01/29/22 Range/Units 09:20 09:20 09:20 WBC 8.9 (4.5-11.0) X10^3/uL RBC 4.99 (4.5-5.9) X10^6/uL Hgb 15.2 (13.5-17.5) g/dL Hct 45.9 (41-53) % MCV 92.0 (80-100) fL MCH 30.4 (26-34) PG MCHC 33.0 (30-36) % RDW 14.3 (11.6-14.8) % Plt Count 327 (150-400) X10^3/uL Neut % (Auto) 51.6 (50-75) % Lymph % (Auto) 38.5 (25-40) % [place] % (Auto) 8.1 (3-14) % Eos % (Auto) 1.4 L (2-4) % Baso % (Auto) 0.4 (0-2) % Neut # (Auto) 4600 (1331-3843) /uL Lymph # (Auto) 3400 (2683-5106) /uL [place] # (Auto) 700 (0-900) /uL Eos # (Auto) 100 (0-450) /uL Baso # (Auto) 0 (0-100) /uL D-Dimer < 200 (<230) ng/mL Sodium 140 (137-145) mmol/L Potassium 4.1 (3.4-5.1) mmol/L Chloride 104 (98-107) mmol/L Carbon Dioxide 29 (22-32) mmol/L BUN 12 (9-20) mg/dL Creatinine 0.81 (0.66-1.25) mg/dL Estimated GFR > 60.0 (>60) mL/min BUN/Creatinine Ratio 14.8 (6-22) Glucose 113 H (70-100) mg/dL Calcium 9.2 (8.4-10.2) mg/dL Magnesium 1.7 (1.6-2.3) mg/dL Total Creatine Kinase 270 H (55-170) U/L CK-MB (CK-2) 1.33 (<2.37) ng/mL CK-MB (CK-2) Rel Index 0.5 L (1.5-5.0) % Troponin I < 0.012 (0.01-0.034) ng/mL ECG Data Attestation: I personally reviewed and interpreted this ECG as follows: (Normal sinus rhythm rate 93 beats per minute. Normal intervals. No ectopy. No acute ST T wave changes. A single PVC was noted on cardiac monitoring.) Discharge Plan Departure Patient Disposition: Home Clinical Impression: PVC (premature ventricular contraction) Instructions: Arrhythmias Activity Restrictions/Additional Instructions: Testing shows no evidence of a heart attack, significant infection, blood clots, or other immediate concerning cardiopulmonary problems. Your electrolytes are normal. PVCs are common, generally not threatening. They can be quite irritating. If you desire further evaluation, you may consider talking to your doctor about a cardiology consult. Return the ER if you develop significant chest pain, difficulty breathing, or feel like he could pass out. Prescriptions: No Action albuterol sulfate [Ventolin HFA] 90 MCG/PUFF HFA aerosol inhaler 0 INH Q4H Qty: 8 0RF Referrals: Miscellaneous,DoctorMD [Primary Care Provider] -
[2022-01-29 10:30] LABS: Add Manual Diff / Slide Review NO; Basophils Absolute Auto 0 /uL (0-100); Basophils Percent Auto 0.4 % (0-2); Eosinophils Absolute Auto 100 /uL (0-450); Eosinophils Percent Auto 1.4 % (2-4); Hematocrit 45.9 % (41-53); Hemoglobin 15.2 g/dL (13.5-17.5); Lymphocytes Absolute Auto 3400 /uL (1100-4500); Lymphocytes Percent Auto 38.5 % (25-40); Mean Corpuscular Hemoglobin 30.4 PG (26-34); Monocytes Absolute Auto 700 /uL (0-900); Monocytes Percent Auto 8.1 % (3-14); Neutrophils Absolute Auto 4600 /uL (1500-7000); Neutrophils Percent Auto 51.6 % (50-75); Platelet Count 327 X10^3/uL (150-400); Red Blood Cell Count 4.99 X10^6/uL (4.5-5.9); Red Cell Distribution Width 14.3 % (11.6-14.8); White Blood Cell Count 8.9 X10^3/uL (4.5-11.0)
[2022-01-29 10:33] LABS: BUN Creatinine Ratio 14.8 (6-22); Blood Urea Nitrogen 12 mg/dL (9-20); Calcium 9.2 mg/dL (8.4-10.2); Carbon Dioxide 29 mmol/L (22-32); Chloride 104 mmol/L (98-107); Creatine Kinase 270 U/L (55-170); Estimated Glomerular Filt Rate > 60.0 mL/min (>60); Glucose 113 mg/dL (70-100); HEMOLYSIS < 15 (0-50); Magnesium 1.7 mg/dL (1.6-2.3); Potassium 4.1 mmol/L (3.4-5.1); Sodium 140 mmol/L (137-145)
[2022-01-29 10:35] LABS: D Dimer < 200 ng/mL (<230)
[2022-01-29 10:44] LABS: Troponin I < 0.012 ng/mL (0.01-0.034)
[2022-01-29 10:47] LABS: CKMB % Relative Index 0.5 % (1.5-5.0); Creatine Kinase MB 1.33 ng/mL (<2.37)
== END 2022-01-29 11:29 | disposition home or self-care (01) ==
PROVIDERS: Emergency Provider Emergency Medicine
DX: I49.3 Ventricular premature depolarization (principal); Z87.891 Personal history of nicotine dependence
CPT/HCPCS: 80048; 82550; 82553; 83735; 84484; 85025; 85379; 93005; 93010; 99283; 99284

== ENCOUNTER 2022-05-27 18:31 | Emergency (ER) | payer OTHER, MEDICAID, SELFPAY ==
[2022-05-27 18:41] VITALS: BP 175/105; PULSE 94; RESP 16; TEMP 36.9; O2SAT 99; BMI 49.4
--- NOTE | 2022-05-27 18:45 | DI.RAD.S_ITS ---
PROCEDURE: XR WRIST RT MIN 3V INDICATIONS: smacked a wall swelling and pain TECHNIQUE: 3 views of the wrist were acquired. COMPARISON: None. FINDINGS: Bones: No fractures or dislocations. No suspicious bony lesions. Scaphoid view: Scaphoid appears intact. Scapholunate interval is maintained. Soft tissues: No suspicious soft tissue calcifications. Mild diffuse soft tissue swelling of the right hand. IMPRESSION: Mild right hand soft tissue swelling. No underlying fracture or dislocation. If there is persistent clinical concern for occult fracture given adequate mechanism of injury, consider repeat imaging in 10-14 days. Dictated by: Alejo Suarez M.D. on 05/27/2022 at 19:04 Approved by: Alejo Suarez M.D. on 05/27/2022 at 19:05
--- NOTE | 2022-05-27 19:03 | ED_ITS ---
HPI - Extremity Injury (Upper) <PIA Rangel - Last Filed: 05/27/22 19:33> General Chief Complaint: Extremity Injury, Upper Stated Complaint: right side swelling of wrist Time Seen by Provider: 05/27/22 19:01 History of Present Illness HPI narrative: 36-year-old male presents to the emergency department with complaints of right wrist pain after smacking a wall with his wrist. No deformity noted. Mild swelling noted of right wrist. No break in skin or active bleeding. Related Data Previous Rx's Medication Instructions Recorded albuterol sulfate 90 mcg/actuation 0 INH Q4H ##8 10/31/16 aerosol inhaler (Ventolin HFA) Allergies Allergy/AdvReac Type Severity Reaction Status Date / Time No Known Drug Allergies Allergy Verified 01/29/22 09:29 Review of Systems <PIA Rangel - Last Filed: 05/27/22 19:33> Review of Systems Narrative: Narrative: GENERAL: Denies chills, fatigue, fever, sweats. HEENT: Denies sinus pain, ear pain, sore throat, difficulty swallowing, dizziness. RESPIRATORY: Denies dyspnea, cough, wheezing, sputum. CARDIOVASCULAR: Denies chest pain, palpitations, edema. GASTROINTESTINAL: Denies nausea, vomiting, abdominal pain, diarrhea, constipation. : Denies dysuria, frequency, incontinence, hematuria, urinary retention, flank pain. MUSCULOSKELETAL: Pain with movement and palpation distal ulnar head. SKIN: Denies rash, skin lesions, or pruritis. NEUROLOGIC: Denies weakness, dizziness, headache, numbness. PSYCHIATRIC: No concerning psychosocial issues. Patient History <PIA Rangel - Last Filed: 05/27/22 19:33> Medical History Morbid obesity Palpitations PVC (premature ventricular contraction) Thoracic back pain Surgical History No pertinent past surgical history Family History Brother Hypertension Diabetes mellitus, type II Father Age: 72 [place] (myocardial infarction) Diabetes mellitus Hypertension Grandmother Emphysema Mother Obesity Anxiety and depression Social History Smoking Status: Former smoker Smoking Status: Former smoker tobacco type: vaping alcohol intake frequency: other Substance Use Type: does not use Exam <PIA Rangel - Last Filed: 05/27/22 19:33> Narrative Exam Narrative: Exam Narrative: GENERAL: This is a well-nourished, well-developed patient, in no acute distress HEAD: Atraumatic. Normocephalic. EYES: Pupils equal round and reactive. Extraocular motions intact. No injection or drainage. ENT: Nose without bleeding, purulent drainage. Airway patent. NECK: Trachea midline. No JVD or lymphadenopathy. Supple and nontender. CARDIOVASCULAR: Regular rate and rhythm, peripheral pulses intact, cap refill <2 sec. RESPIRATORY: Breath sounds equal and clear bilaterally. No wheezes, rales, or rhonchi. No cough. No increased respiratory effort. No accessory muscle use. GASTROINTESTINAL: Abdomen soft, non-tender, nondistended without guarding or rebound. No suprapubic pain. No hepato-splenomegaly, or palpable masses. EXTREMITIES: Decreased range of motion of right wrist due to pain. Mild swelling noted to anterior wrist. No snuffbox tenderness. Neurovascularly intact. NEURO: A&O x 3. SKIN: Warm, dry, no rashes or lesions noted. Initial Vital Signs Initial Vital Signs: Vital Signs Temperature 98.4 F 05/27/22 18:41 Pulse Rate 94 H 05/27/22 18:41 Respiratory Rate 16 05/27/22 18:41 Blood Pressure 175/105 H 05/27/22 18:41 Pulse Oximetry 99 05/27/22 18:41 Oxygen Delivery Method 05/27/22 18:41 Extrem Other: WRIST: There is mild swelling but no bruising or asymmetry. There is tenderness to palpation over the distal ulnar head. There is no snuff-box tenderness. Sensation grossly intact. Patient is able to pronate and supinate with minimal pain. Range of motion is limited due to pain. Radial pulse intact. 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 Inter-digital strength is intact. The contralateral wrist exam is unremarkable. <Melchor Fuller DO - Last Filed: 06/06/22 17:43> Initial Vital Signs Initial Vital Signs: Vital Signs Temperature 98.4 F 05/27/22 18:41 Pulse Rate 94 H 05/27/22 18:41 Respiratory Rate 16 05/27/22 18:41 Blood Pressure 175/105 H 05/27/22 18:41 Pulse Oximetry 99 05/27/22 18:41 Oxygen Delivery Method 05/27/22 18:41 Procedures <PIA Rangel - Last Filed: 05/27/22 19:33> Orthopedic Splinting/Casting Injury #1: Side: right Post splinting neuro exam: intact Post splinting vascular exam: intact Placed by: Nursing Additional Comments: Velcro wrist splint <Melchor Fuller DO - Last Filed: 06/06/22 17:43> Orthopedic Splinting/Casting Injury #1: Upper Extremity Injury Location: wrist Upper Extremity Immobilizer: wrist splint Course <PIA Rangel Last Filed: 05/27/22 19:33> Orders Ordered: ED Orders 05/27/22 18:45 XR wrist RT min 3V Stat Vital Signs Vital signs: Vital Signs - 8 hr 05/27/22 18:41 Temperature 98.4 F Pulse Rate 94 H Respiratory Rate 16 Blood Pressure 175/105 H Pulse Oximetry 99 Oxygen Delivery Method Room Air <DO Luz Elena Chan Last Filed: 06/06/22 17:43> Orders Ordered: ED Orders 05/27/22 18:45 XR wrist RT min 3V Stat Vital Signs Vital signs: Vital Signs - 8 hr 05/27/22 18:41 Temperature 98.4 F Pulse Rate 94 H Respiratory Rate 16 Blood Pressure 175/105 H Pulse Oximetry 99 Oxygen Delivery Method Room Air MDM - Extremity Injury (Upper) <PIA Rangel - Last Filed: 05/27/22 19:33> Differential Diagnosis Differential diagnosis: Likely sprain and strain of wrist; Unlikely fracture of wrist or fracture of hand Imaging Data Extremity x-ray #1: My Impression: Normal wrist Radiologist's Impression: [address] [address] XRay Report Signed Patient: Gaston Pham MR#: [id number] : 1985 Acct:[id number] Age/Sex: 36 / M Date of Service: 05/27/22 Loc: ED Accession Number: [id number] ?? Procedure: XR wrist RT min 3V Ordering Provider: Melchor Fuller D.O. PROCEDURE:? XR WRIST RT MIN 3V ? INDICATIONS: smacked a wall swelling and pain ? TECHNIQUE:? 3 views of the wrist were acquired.? ? COMPARISON:? None. ? FINDINGS:? ? Bones:? No fractures or dislocations.? No suspicious bony lesions.? ? Scaphoid view:? Scaphoid appears intact. Scapholunate interval is maintained. ? Soft tissues:? No suspicious soft tissue calcifications.? Mild diffuse soft tissue swelling of the right hand.? ? IMPRESSION:? Mild right hand soft tissue swelling.? No underlying fracture or dislocation. ? If there is persistent clinical concern for occult fracture given adequate mechanism of injury, consider repeat imaging in 10-14 days. ? ? ? Dictated by: Alejo Suarez M.D. on 05/27/2022 at 19:04 ? ? Approved by: Alejo Suarez M.D. on 05/27/2022 at 19:05? MDM Narrative Medical decision making narrative: 36-year-old male with complaints of right wrist pain secondary to smack in a while. Personal review of the x-ray shows a normal wrist. Recommended rice, NSAIDs and a wrist splint. Patient was fitted for a wrist splint prior to discharge. Discussed plan of care with the patient, who is agreeable with course of action. Discharge Plan Departure Patient Disposition: Home Clinical Impression: Sprain and strain of wrist Instructions: DI for Wrist Sprain Activity Restrictions/Additional Instructions: *You have been diagnosed with right wrist sprain. Your x-ray was normal and no fractures. Rest (modified activity), along with ice, compression wrap/splint-immobilize as directed and elevation above heart. Tylenol or Ibuprofen for discomfort. If symptoms persist, you may require a repeat x-ray in the next 10-14 days. *What to do: *Please continue to take your regular medications as directed. [ ] New medication prescriptions sent to your pharmacy: [ ] [ ] New medication written as a paper prescription [x ] No new medications given *Please follow up with your primary care provider in 2-3 days, call for an appointment. Let them know you were seen in the Emergency Department and that we ask that you be seen in follow up. We will electronically transmit a record of today's note if your PCP is in our system *If you do not have a primary care provider please contact the [facility] Resource line at [phone]. They will ask some questions about your medical history and help get you set up with a doctor in the community. ? Return to ER if you should have any new, worsening or concerning symptoms, such as worsening pain, severe headache, confusion, chest pain, difficulty breathing, fever greater than 101 F, shaking chills, persistent vomiting to the point that you cannot drink fluids, or other new or worsening symptoms. Prescriptions: No Action albuterol sulfate [Ventolin HFA] 90 MCG/PUFF HFA aerosol inhaler 0 INH Q4H Qty: 8 0RF Referrals: Miscellaneous,Doctor, MD [Primary Care Provider] - Visit Report Forms: Patient Portal/API
[2022-05-27 19:31] VITALS: BP 166/99; PULSE 85; O2SAT 97
== END 2022-05-27 19:31 | disposition home or self-care (01) ==
PROVIDERS: Emergency Provider Registered Nurse
DX: S63.501A Unspecified sprain of right wrist, initial encounter (principal); S66.911A Strain of unspecified muscle, fascia and tendon at wrist and hand level, right hand, initial encounter; W22.01XA Walked into wall, initial encounter
CPT/HCPCS: 73110; 99283

== ENCOUNTER 2024-10-11 12:08 | Emergency (ER) | payer SELFPAY ==
[2024-10-11] VITALS (12 sets, daily range): BP systolic 134–181; BP diastolic 75–102; PULSE 76–106; RESP 9–25; TEMP 36.4; O2SAT 96–99; BMI 63.8
--- NOTE | 2024-10-11 12:18 | EKG_ITS ---
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
--- NOTE | 2024-10-11 12:33 | ED.GENADULT ---
HPI - General Adult General Chief complaint: Dizziness Stated complaint: near syncope t-4 Time Seen by Provider: 10/11/24 12:17 Source: patient and family Mode of arrival: Ambulatory History of Present Illness HPI narrative: Patient is a 38-year-old male. For the past 4 days he reports symptoms where he states he becomes dizzy and almost passes out. He occasionally has palpitations but does not seem to be associated to these episodes. He states that it is more prominent when he turns his head to the side or looks up. It did happen 1 time when he was standing up and another time when he was in the shower earlier today. No chest pain, shortness of breath, headache, visual changes, sinus congestion, fevers, diarrhea, nausea vomiting. No numbness or tingling in upper and lower extremities. Related Data Previous Rx's Medication Instructions Recorded albuterol sulfate 90 mcg/actuation 0 INH Q4H ##8 10/31/16 aerosol inhaler (Ventolin HFA) meclizine 25 mg tablet 25 mg PO BID PRN dizziness #14 tabs 10/11/24 Allergies Allergy/AdvReac Type Severity Reaction Status Date / Time No Known Drug Allergies Allergy Verified 10/11/24 12:11 Review of Systems Review of Systems ROS Unobtainable: All systems reviewed & are unremarkable except as noted in HPI and below Patient History Medical History Morbid obesity Thoracic back pain Palpitations PVC (premature ventricular contraction) Surgical History No pertinent past surgical history Family History Brother Hypertension Diabetes mellitus, type II Father Age: 72 [place] (myocardial infarction) Diabetes mellitus Hypertension Grandmother Emphysema Mother Obesity Anxiety and depression Social History Smoking Status: Former smoker Smoking Status: Former smoker tobacco type: vaping alcohol intake frequency: other Substance Use Type: does not use Exam Initial Vital Signs Initial Vital Signs: Vital Signs Temperature 97.5 F L 10/11/24 12:11 Pulse Rate 97 H 10/11/24 12:11 Respiratory Rate 16 10/11/24 12:11 Blood Pressure 134/75 10/11/24 12:11 Pulse Oximetry 98 10/11/24 12:11 Oxygen Delivery Method Room Air 10/11/24 12:11 Const General: cooperative, comfortable and No ill appearing HENJEWEL Head: normal to inspection and normocephalic Ears: TM's normal bilaterally Eyes General: Yes appearance normal, both eyes and all related structures Resp Effort & Inspection: normal respiratory effort Auscultation: clear to auscultation bilaterally Cardio Rate: regular rate Rhythm: regular rhythm Skin General: no rashes or lesions noted Neuro General: patient alert, patient awake, patient oriented x3 and moves all extremities Cognition: normal cognition Speech: speech normal Gait: normal gait Other: Patient had reproduction of the symptoms with turning his head to the left. Also had reproduction with turning his head to the right but not as intense. Extrem General: normal to inspection Course Orders Ordered: ED Orders 10/11/24 12:18 EKG-12 Lead Stat 10/11/24 12:19 Complete Blood Count AUTO DIFF Stat Comprehensive Metabolic Panel Stat Lipase Stat Discontinued Medications Meclizine HCl (Meclizine Hcl 12.5 Mg Tablet) 25 mg PO NOW ONE Stop: 10/11/24 12:35 Last Admin: 10/11/24 13:12 Dose: 25 mg Vital Signs Vital signs: Vital Signs - 8 hr 10/11/24 12:11 10/11/24 12:33 10/11/24 12:35 Temperature 97.5 F L Pulse Rate 97 H 88 84 Pulse Rate [Orthostatic Lying] Pulse Rate [Orthostatic Sitting] Pulse Rate [Orthostatic Standing] Respiratory Rate 16 15 18 Blood Pressure 134/75 Blood Pressure [Orthostatic Lying] Blood Pressure [Orthostatic Sitting] Blood Pressure [Orthostatic Standing] Pulse Oximetry 98 98 97 Oxygen Delivery Method Room Air 10/11/24 12:35 10/11/24 12:43 10/11/24 12:43 Temperature Pulse Rate 87 Pulse Rate [Orthostatic Lying] Pulse Rate [Orthostatic Sitting] Pulse Rate [Orthostatic Standing] Respiratory Rate 13 Blood Pressure 147/98 H 154/96 H Blood Pressure [Orthostatic Lying] Blood Pressure [Orthostatic Sitting] Blood Pressure [Orthostatic Standing] Pulse Oximetry 98 Oxygen Delivery Method 10/11/24 12:46 10/11/24 12:46 10/11/24 12:47 Temperature Pulse Rate 88 86 Pulse Rate [Orthostatic Lying] Pulse Rate [Orthostatic Sitting] Pulse Rate [Orthostatic Standing] Respiratory Rate 25 H 21 Blood Pressure 153/92 H Blood Pressure [Orthostatic Lying] Blood Pressure [Orthostatic Sitting] Blood Pressure [Orthostatic Standing] Pulse Oximetry 97 99 Oxygen Delivery Method 10/11/24 12:47 10/11/24 12:48 10/11/24 12:48 Temperature Pulse Rate 99 H Pulse Rate [Orthostatic Lying] Pulse Rate [Orthostatic Sitting] Pulse Rate [Orthostatic Standing] Respiratory Rate 16 Blood Pressure 160/101 H 181/102 H Blood Pressure [Orthostatic Lying] Blood Pressure [Orthostatic Sitting] Blood Pressure [Orthostatic Standing] Pulse Oximetry 98 Oxygen Delivery Method 10/11/24 12:50 10/11/24 13:00 10/11/24 13:00 Temperature Pulse Rate 83 Pulse Rate [Orthostatic Lying] 94 H Pulse Rate [Orthostatic Sitting] 106 H Pulse Rate [Orthostatic Standing] 99 H Respiratory Rate 17 Blood Pressure 164/77 H Blood Pressure [Orthostatic Lying] 153/92 H Blood Pressure [Orthostatic Sitting] 160/101 H Blood Pressure [Orthostatic Standing] 181/102 H Pulse Oximetry 96 Oxygen Delivery Method 10/11/24 13:30 10/11/24 13:30 Temperature Pulse Rate 76 Pulse Rate [Orthostatic Lying] Pulse Rate [Orthostatic Sitting] Pulse Rate [Orthostatic Standing] Respiratory Rate 9 L Blood Pressure 151/90 H Blood Pressure [Orthostatic Lying] Blood Pressure [Orthostatic Sitting] Blood Pressure [Orthostatic Standing] Pulse Oximetry 97 Oxygen Delivery Method Medical Decision Making Lab Data Lab results reviewed: Yes I reviewed the patient's lab results. 10/11/24 12:04 10/11/24 12:04 Labs: Lab Results 10/11/24 Range/Units 12:04 WBC 11.1 H (4.5-11.0) X10^3/uL RBC 4.96 (4.5-5.9) X10^6/uL Hgb 15.5 (13.5-17.5) g/dL Hct 45.6 (41-53) % MCV 92.0 (80-100) fL MCH 31.2 (26-34) PG MCHC 34.0 (30-36) % RDW 13.8 (11.6-14.8) % Plt Count 351 (150-400) X10^3/uL Neut % (Auto) 50.5 (50-75) % Lymph % (Auto) 39.8 (25-40) % [place] % (Auto) 7.3 (3-14) % Eos % (Auto) 1.8 L (2-4) % Baso % (Auto) 0.6 (0-2) % Neut # (Auto) 5600 (5318-5451) /uL Lymph # (Auto) 4400 (6184-0022) /uL [place] # (Auto) 800 (0-900) /uL Eos # (Auto) 200 (0-450) /uL Baso # (Auto) 100 (0-100) /uL Sodium 139 (137-145) mmol/L Potassium 4.2 (3.4-5.1) mmol/L Chloride 108 H (98-107) mmol/L Carbon Dioxide 22 (22-32) mmol/L BUN 15 (9-20) mg/dL Creatinine 0.75 (0.66-1.25) mg/dL Estimated GFR > 60 (>60) mL/min BUN/Creatinine Ratio 20.0 (6-22) Glucose 100 (70-100) mg/dL Calcium 9.1 (8.4-10.2) mg/dL Total Bilirubin 0.4 (0.2-1.3) mg/dL AST 28 (17-59) IU/L ALT 39 (<50) IU/L Alkaline Phosphatase 76 (38-126) U/L Total Protein 7.5 (6.3-8.2) g/dL Albumin 4.2 (3.5-5.0) g/dL Globulin 3.3 (1.7-4.1) g/dL Albumin/Globulin Ratio 1.3 (1.0-2.8) Lipase 72 (23-300) U/L ECG Data Attestation: I personally reviewed and interpreted this ECG as follows: Interpretation: Sinus rhythm Ventricular rate of 89 Normal axis Normal QRS Normal QTC No ST T wave changes MDM Narrative Medical decision making narrative: Patient has positional dizziness although not specifically vertigo. He was able to ambulate. We were able to reproduce some of his symptoms by having him stand up. He was not orthostatic. No signs of infection. No headache. Low suspicion for central process. Will send home with a prescription for meclizine. We also discussed the use of an antihistamine such as Claritin or Zyrtec. Recommended that he follow up with the ENT if his symptoms are not improving. He was given return precautions. He expressed understanding and agreement. Discharge Plan Departure Patient Disposition: Home Clinical Impression: Dizziness Instructions: DI for Dizziness-Nonvertigo Activity Restrictions/Additional Instructions: I do recommend that you take the meclizine as needed and as directed. I also recommend that you start on an antihistamine such as Claritin or Zyrtec. This can be purchased [id number]. If your symptoms are not improved in the next couple days then contact the ENT providers with the number provided below for follow-up. Return to the emergency department for new symptoms. Prescriptions: New meclizine 25 mg tablet 25 mg PO BID PRN (Reason: dizziness) Qty: 14 0RF No Action albuterol sulfate [Ventolin HFA] 90 MCG/PUFF HFA aerosol inhaler 0 INH Q4H Qty: 8 0RF Referrals: Joseph Casillas MD [Physician] - Miscellaneous,MD Ignacio [Primary Care Provider] - Stand Alone Forms: Patient Portal/API/Survey
[2024-10-11 12:54] LABS: Add Manual Diff / Slide Review NO; Basophils Absolute Auto 100 /uL (0-100); Basophils Percent Auto 0.6 % (0-2); Eosinophils Absolute Auto 200 /uL (0-450); Eosinophils Percent Auto 1.8 % (2-4); Hematocrit 45.6 % (41-53); Hemoglobin 15.5 g/dL (13.5-17.5); Lymphocytes Absolute Auto 4400 /uL (1100-4500); Lymphocytes Percent Auto 39.8 % (25-40); Mean Corpuscular Hemoglobin 31.2 PG (26-34); Monocytes Absolute Auto 800 /uL (0-900); Monocytes Percent Auto 7.3 % (3-14); Neutrophils Absolute Auto 5600 /uL (1500-7000); Neutrophils Percent Auto 50.5 % (50-75); Platelet Count 351 X10^3/uL (150-400); Red Blood Cell Count 4.96 X10^6/uL (4.5-5.9); Red Cell Distribution Width 13.8 % (11.6-14.8); White Blood Cell Count 11.1 X10^3/uL (4.5-11.0)
--- NOTE | 2024-10-11 12:55 | PC.NURSE ---
felt the most dizziness when changing from sitting to lying down and then from lying down to sitting, then with standing after standing x 1 min dizziness like im going to pass out and palpitations.
[2024-10-11 13:01] LABS: Alanine Aminotransferase 39 IU/L (<50); Albumin 4.2 g/dL (3.5-5.0); Albumin Globulin Ratio 1.3 (1.0-2.8); Alkaline Phosphatase 76 U/L (38-126); Aspartate Aminotransferase 28 IU/L (17-59); Bilirubin Total 0.4 mg/dL (0.2-1.3); Blood Urea Nitrogen 15 mg/dL (9-20); Calcium 9.1 mg/dL (8.4-10.2); Carbon Dioxide 22 mmol/L (22-32); Chloride 108 mmol/L (98-107); Estimated Glomerular Filt Rate > 60 mL/min (>60); Globulin 3.3 g/dL (1.7-4.1); Glucose 100 mg/dL (70-100); HEMOLYSIS 36 (0-50); Lipase 72 U/L (23-300); Potassium 4.2 mmol/L (3.4-5.1); Sodium 139 mmol/L (137-145); Total Protein 7.5 g/dL (6.3-8.2)
[2024-10-11] MEDS: MECLIZINE HCL 12.5 MG TABLET 25 MG PO (13:12)
== END 2024-10-11 14:05 | disposition home or self-care (01) ==
PROVIDERS: Emergency Provider Emergency Medicine
DX: R42 Dizziness and giddiness (principal); R07.9 Chest pain, unspecified
CPT/HCPCS: 36415; 80053; 83690; 85025; 93005; 99283; 99284

== ENCOUNTER 2025-03-28 07:32 | Emergency (ER) | payer OTHER, SELFPAY ==
[2025-03-28 07:45] VITALS: BP 176/82; PULSE 106; RESP 18; TEMP 36.7; O2SAT 98; BMI 63.1
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
== END 2025-03-28 08:24 | disposition home or self-care (01) ==
PROVIDERS: Emergency Provider Emergency Medicine
DX: M54.50 Low back pain, unspecified (principal); V53.6XXA Passenger in pick-up truck or van injured in collision with car, pick-up truck or van in traffic accident, initial encounter
CPT/HCPCS: 99281; 99283